=== PATIENT | male | born 1940 | race Caucasian/White ===

== ENCOUNTER 2017-04-13 17:43 | Emergency (ER) | payer MEDICARE ==
--- NOTE | 2017-04-13 19:55 | RAD ---
Indication: Chest pain. 2 views of the chest including dual energy PA views demonstrates no mediastinal shift. Lung bowling appear hyperinflated. No pleural fluid, pneumonia or pneumothorax. Old healed rib fractures of left fourth fifth sixth and seventh ribs is noted. IMPRESSION: No active cardiopulmonary disease is noted.
[2017-04-13 19:56] LABS: ABS Basophils 0 10^3/ul (0-0.2); ABS Eosinophils 0.3 10^3/ul (0-0.6); ABS Lymphocytes 1.7 10^3/ul (1.0-4.8); ABS Monocytes 0.8 10^3/ul (0-0.8); ABS Neutrophils 4.4 10^3/ul (1.5-7.7); ABS Nucleated RBC 0 10^3/ul; Eosinophil % 4.5 % (0-6); Hematocrit 42 % (42-52); Hemoglobin 14.1 g/dl (14.0-18.0); Lymphocyte % 23.7 % (25-47); Mean Corpuscular HGB Conc 34 g/dl (31-36); Mean Corpuscular Hemoglobin 30 pg (27-31); Mean Corpuscular Volume 89 fL (80-94); Mean Platelet Volume 8 um3 (7.4-10.4); Nucleated Red Blood Cells % 0; Platelet Count 244 10^3/ul (150-450); Red Cell Distribution Width 13 % (10.5-15); White Blood Count 7.3 10^3/ul (3.5-10.8)
[2017-04-13 20:14] LABS: EGFR Non-African American 57.4 (>60)
[2017-04-13 20:33] VITALS: BP 143/86
[2017-04-13] MEDS ORDERED: Iohexol 350* (CONTRAST) 500 ML MDV IV ONE (20:46)
--- NOTE | 2017-04-13 21:19 | RAD ---
Indication: Dyspnea, chest pain. Contrast: Administered 75.1 ml of VISAPAQUE 320 mg/ml CTA of the chest was performed after IV contrast administration. Coronal and sagittal reconstructed images were obtained. The pulmonary arterial tree is well opacified. There are no filling defects present to suggest pulmonary embolus. The aorta demonstrates no evidence of aortic dissection although fusiform ectasia of the descending aorta is noted measuring up to 4.7 cm. There is no mediastinal or hilar adenopathy noted. No mediastinal or hilar adenopathy is noted. The trachea and major bronchi are patent. Atelectasis is noted in the right lower lobe. Small 2 mm nodule is noted in the periphery of the right lower lobe reference image 43. Atelectasis is noted in the left lung base. The visualized abdominal organs are unremarkable. IMPRESSION: No evidence of pulmonary embolus is noted. Fusiform ectasia of the ascending aorta.
--- NOTE | 2017-04-13 22:30 | ED ---
Charli Vega Stephanie, scribed for Woodrow Stout MD on 04/13/17 at 1907 . HPI Chest Pain - HPI Summary HPI Summary: The pt is a 76 y/o M presenting to the ED with c/o CP that began on 04/10/17. The pt denies cough, fever and chills. The pt reports he was at rest at onset of pain. The pain radiates into his L shoulder. The pain is described as a sharp pain. The pt states he was checked 4 years ago for intermittent CP. - History of Current Complaint Chief Complaint: EDChestPainROMI Time Seen by Provider: 04/13/17 18:59 Hx Obtained From: Patient Onset/Duration: Started Days Ago - 3, Resolved Timing: Intermittent Current Severity: Mild Pain Intensity: 2 Pain Scale Used: 0-10 Numeric Chest Pain Location: Left Anterior Chest Pain Radiates: Yes Chest Pain Radiates To:: Shoulder - L Character: Sharp/Stabbing Aggravating Factor(s): Nothing Alleviating Factor(s): Nothing Associated Signs and Symptoms: Positive: Chest Pain. Negative: Fever, Chills, Cough - Allergy/Home Medications Allergies/Adverse Reactions: Allergies Allergy/AdvReac Type Severity Reaction Status Date / Time No Known Allergies Allergy Verified 10/16/16 12:58 Home Medications: Home Medications Ascorbate Calcium/Bioflavonoid [Sherry-C 500 mg Tablet] 1 each PO BID 04/13/17 [ History Confirmed 04/13/17] Aspirin EC Low Dose* [Ecotrin EC Low Dose 81 MG*] 81 mg PO DAILY 04/13/17 [ History Confirmed 04/13/17] Cranberry [Cranberry] 400 mg PO DAILY 04/13/17 [History Confirmed 04/13/17] Cyanocobalamin TAB* [Vitamin B12 TAB*] 500 mcg PO DAILY 04/13/17 [History Confirmed 04/13/17] Garlic [Odorless Garlic] 1,000 mg PO DAILY 04/13/17 [History Confirmed 04/13/17] Metoprolol Succinate XL TAB* [Toprol XL TAB*] 25 mg PO DAILY 04/13/17 [History Confirmed 04/13/17] [place]-3 Fatty Acids (Nf) [Fish Oil (NF)] 1,000 mg PO BID 04/13/17 [History Confirmed 04/13/17] Selenium (NF) 200 mcg PO DAILY 04/13/17 [History Confirmed 04/13/17] Ubidecarenone [Coq10] 100 mg PO DAILY 04/13/17 [History Confirmed 04/13/17] PMH/Surg Hx/FS Hx/Imm Hx Endocrine/Hematology History: Denies: Hx Diabetes Cardiovascular History: Reports: Hx Hypertension Denies: Hx Pacemaker/ICD History: Denies: Hx Renal Disease Comment Only: Other Problems/Disorders - retention balderas placed Sensory History: Reports: Hx Contacts or Glasses Denies: Hx Cataracts, Hx Eye Injury, Hx Eye Prosthesis, Hx Glaucoma, Hx Legally Blind, Hx Macular Degeneration, Hx Vision Problem, Hx Deafness, Hx Hearing Aid, Hx Hearing Problem, Other Sensory Impairments Opthamlomology History: Reports: Hx Contacts or Glasses Denies: Hx Cataracts, Hx Eye Injury, Hx Eye Prosthesis, Hx Glaucoma, Hx Legally Blind, Hx Macular Degeneration, Hx Vision Problem, Other Sensory Impairments Psychiatric History: Denies: Hx Panic Disorder - Cancer History Cancer Type, Location and Year: melanoma Hx Palliative Cancer Treatment: No - Surgical History Surgery Procedure, Year, and Place: HERNIA, RT ELBOW , RT KNEE, LT WRIST, MELANOMA REMOVED FROM UPPER BACK AREA, - Immunization History Date of Influenza Vaccine: 11/24 Infectious Disease History: No Infectious Disease History: Denies: Traveled Outside the [place] in Last 30 Days - Family History Known Family History: Positive: Cardiac Disease - Social History Occupation: Disabled Lives: With Family Alcohol Use: None Substance Use Type: Reports: None Smoking Status (MU): Never Smoked Tobacco Review of Systems Negative: Fever, Chills Positive: Chest Pain Negative: Cough All Other Systems Reviewed And Are Negative: Yes Physical Exam - Summary Physical Exam Summary: Appearance: Well-appearing, Well-nourished Skin: Warm, Dry, No rash Eyes: Normal, PERRL, EOMI, sclera anicteric ENT: Normal Neck: Supple, nontender Respiratory: rales at R base Cardiovascular: S1, S2, no murmur, no rub, no gallop Abdomen: Soft, nontender, no organomegaly Bowel sounds: Present Musculoskeletal: Normal, Strength/ROM Intact, no edema, pulses symmetrical Neurological: Normal, A&Ox3, cranial nerves II-XII WNL, follows commands, gait not tested, sensation intact to pin and light touch Psychiatric: affect normal, behavior appropriate, dressed appropriately, judgment intact Triage Information Reviewed: Yes Vital Signs On Initial Exam: Initial Vitals Temp Pulse Resp BP Pulse Ox 98.9 F 76 18 179/104 94 04/13/17 17:47 04/13/17 17:47 04/13/17 17:47 04/13/17 17:47 04/13/17 17:47 Vital Signs Reviewed: Yes Diagnostics - Vital Signs Vital Signs Temp Pulse Resp BP Pulse Ox 04/13/17 18:51 65 97 04/13/17 18:48 154/89 04/13/17 17:47 98.9 F 76 18 179/104 94 - Laboratory Result Diagrams: 04/13/17 19:45 04/13/17 19:45 Lab Statement: Any lab studies that have been ordered have been reviewed, and results considered in the medical decision making process. - Radiology CXR Xray Interpretation: No Acute Changes Radiology Interpretation Completed By: Radiologist - No active cardiopulmonary disease is noted. ED physician has reviewed this imaging report and agrees. - CT Chest/Thorax CTA CT Interpretation: No Acute Changes CT Interpretation Completed By: Radiologist - No evidence of pulmonary embolus is noted. Fusiform ectasia of the ascending aorta. ED physician has reviewed this imaging report and agrees. - EKG 17:50 Cardiac Rate: NL EKG Rhythm: Sinus Rhythm - 72 BPM EKG Interpretation: ectopic atrial rhythm, less than [address] elevation inferiorly 21:40 Cardiac Rate: NL EKG Rhythm: Sinus Rhythm - [address] Segment: Normal Ectopy: None EKG Interpretation: LAD, NSR Chest Pain Course/Dx - Course Course Of Treatment: The pt had a high D-Dimer. - Diagnoses Provider Diagnoses: atypical CP, dilated thoracic aorta Discharge - Discharge Plan Condition: Good Disposition: HOME Patient Education Materials: Chest Pain (ED) Referrals: Joaquín Galvan MD [Primary Care Provider] - The documentation as recorded by the Charli howe Stephanie accurately reflects the service I personally performed and the decisions made by me, Woodrow Stout MD.
== END 2017-04-13 22:23 | disposition home or self-care (01) ==
LOC: ED 17:43
DX: R07.89 Other chest pain (principal); I77.810 Thoracic aortic ectasia; R06.00 Dyspnea, unspecified; I10 Essential (primary) hypertension; Z79.82 Long term (current) use of aspirin
CPT/HCPCS: 36415; 71046; 71275; 80053; 83690; 84484; 85025; 85379; 93005; 99282; Q9967

== ENCOUNTER 2017-09-21 14:05 | Emergency (ER) | payer MEDICARE ==
[2017-09-21 14:42] LABS: ABS Basophils 0 10^3/ul (0-0.2); ABS Eosinophils 0.2 10^3/ul (0-0.6); ABS Lymphocytes 1.5 10^3/ul (1.0-4.8); ABS Monocytes 0.5 10^3/ul (0-0.8); ABS Neutrophils 3.6 10^3/ul (1.5-7.7); ABS Nucleated RBC 0 10^3/ul; Eosinophil % 4.1 % (0-6); Hematocrit 41 % (42-52); Hemoglobin 13.9 g/dl (14.0-18.0); Lymphocyte % 25.5 % (25-47); Mean Corpuscular HGB Conc 34 g/dl (31-36); Mean Corpuscular Hemoglobin 31 pg (27-31); Mean Corpuscular Volume 90 fL (80-94); Mean Platelet Volume 7.9 um3 (7.4-10.4); Nucleated Red Blood Cells % 0; Platelet Count 210 10^3/ul (150-450); Red Blood Count 4.53 10^6/ul (4.00-5.40); Red Cell Distribution Width 13 % (10.5-15); White Blood Count 5.9 10^3/ul (3.5-10.8)
--- NOTE | 2017-09-21 14:44 | ED ---
HPI Chest Pain - HPI Summary HPI Summary: This is scribe Ed Chelly documenting for attending Ti Lai MD. I, Dr. Lai, personally performed the services described in this documentation as scribed in my presence and it is both accurate and complete. 77 y/o male presents to the ED c/o sudden onset CP starting 3 days ago, gone now. Pt woke up with the pain. Pain described as a pressure pain. Denies N/V, SOB. Associated sx: L side ABD pain today (mild). Pt had a previous episode of CP several months ago, AA found (around 4.7 cm). Denies CP currently. - History of Current Complaint Chief Complaint: EDChestPainROMI Time Seen by Provider: 09/21/17 14:29 Hx Obtained From: Patient Onset/Duration: Started Days Ago, Resolved Current Severity: None Pain Intensity: 0 Pain Scale Used: 0-10 Numeric Character: Pressure/Squeezing Aggravating Factor(s): Nothing Alleviating Factor(s): Nothing Associated Signs and Symptoms: Positive: Chest Pain, Abdominal Pain - Allergy/Home Medications Allergies/Adverse Reactions: Allergies Allergy/AdvReac Type Severity Reaction Status Date / Time No Known Allergies Allergy Verified 10/16/16 12:58 Home Medications: Home Medications Cyanocobalamin TAB* [Vitamin B12 TAB*] 500 mcg PO DAILY 09/21/17 [History Confirmed 09/21/17] Finasteride TAB* [Proscar TAB*] 5 mg PO DAILY 09/21/17 [History Confirmed ] Fish Oil/Borage/Flax/Om3,6,9 1 [[place] 3-6-9 Complex Softgel] 400 mg PO QAM 09/21 [History Confirmed 09/21/17] Fish Oil/Borage/Flax/Om3,6,9 1 [[place] 3-6-9 Complex Softgel] 800 mg PO QPM 09/21 [History Confirmed 09/21/17] Lutein 40 mg PO DAILY 09/21/17 [History Confirmed 09/21/17] Metoprolol Tartrate TAB* [Lopressor TAB*] 12.5 mg PO BID 09/21/17 [History Confirmed 09/21/17] Nitroglycerin TAB 0.4 MG* 0.4 mg SL Q5M PRN 09/21/17 [History Confirmed 09/21/17 ] Omeprazole CAP* [Prilosec CAP* 20 MG] 20 mg PO DAILY PRN 09/21/17 [History Confirmed 09/21/17] Red Yeast Rice 600 mg PO DAILY 09/21/17 [History Confirmed 09/21/17] Ubidecarenone [Co Q-10] 100 mg PO DAILY 09/21/17 [History Confirmed 09/21/17] PMH/Surg Hx/FS Hx/Imm Hx Endocrine/Hematology History: Denies: Hx Diabetes Cardiovascular History: Reports: Hx Hypertension Denies: Hx Pacemaker/ICD History: Denies: Hx Renal Disease Comment Only: Other Problems/Disorders - retention balderas placed Sensory History: Reports: Hx Contacts or Glasses Denies: Hx Cataracts, Hx Eye Injury, Hx Eye Prosthesis, Hx Glaucoma, Hx Legally Blind, Hx Macular Degeneration, Hx Vision Problem, Hx Deafness, Hx Hearing Aid, Hx Hearing Problem, Other Sensory Impairments Opthamlomology History: Reports: Hx Contacts or Glasses Denies: Hx Cataracts, Hx Eye Injury, Hx Eye Prosthesis, Hx Glaucoma, Hx Legally Blind, Hx Macular Degeneration, Hx Vision Problem, Other Sensory Impairments Psychiatric History: Denies: Hx Panic Disorder - Cancer History Cancer Type, Location and Year: melanoma Hx Palliative Cancer Treatment: No - Surgical History Surgery Procedure, Year, and Place: HERNIA, RT ELBOW , RT KNEE, LT WRIST, MELANOMA REMOVED FROM UPPER BACK AREA, - Immunization History Date of Influenza Vaccine: 11/24 Infectious Disease History: No Infectious Disease History: Denies: Traveled Outside the [place] in Last 30 Days - Family History Known Family History: Positive: Cardiac Disease - Social History Alcohol Use: None Substance Use Type: Reports: None Smoking Status (MU): Never Smoked Tobacco Review of Systems Constitutional: Negative Eyes: Negative ENT: Negative Positive: Chest Pain Respiratory: Negative Positive: Abdominal Pain Genitourinary: Negative Musculoskeletal: Negative Skin: Negative Neurological: Negative Psychological: Normal All Other Systems Reviewed And Are Negative: Yes Physical Exam - Summary Physical Exam Summary: VITAL SIGNS: Reviewed. GENERAL: Patient is a well-developed and nourished male who is lying comfortable in the stretcher. Patient is not in any acute respiratory distress. HEAD AND FACE: No signs of trauma. No ecchymosis, hematomas or skull depressions. No sinus tenderness. EYES: PERRLA, EOMI x 2, No injected conjunctiva, no nystagmus. EARS: Hearing grossly intact. Ear canals and tympanic membranes are within normal limits. MOUTH: Oropharynx within normal limits. NECK: Supple, trachea is midline, no adenopathy, no JVD, no carotid bruit, no c- spine tenderness, neck with full ROM. CHEST: Symmetric, no tenderness at palpation LUNGS: Clear to auscultation bilaterally. No wheezing or crackles. CVS: Regular rate and rhythm, S1 and S2 present, no murmurs or gallops appreciated. ABDOMEN: Soft, non-tender. No signs of distention. No rebound no guarding, and no masses palpated. Bowel sounds are normal. EXTREMITIES: FROM in all major joints, no edema, no cyanosis or clubbing. NEURO: Alert and oriented x 3. No acute neurological deficits. Speech is normal and follows commands. SKIN: Dry and warm Triage Information Reviewed: Yes Vital Signs On Initial Exam: Initial Vitals Temp Pulse Resp BP Pulse Ox 97.2 F 59 15 127/88 96 09/21/17 14:13 09/21/17 14:13 09/21/17 14:13 09/21/17 14:13 09/21/17 14:13 Vital Signs Reviewed: Yes Diagnostics - Vital Signs Vital Signs Temp Pulse Resp BP Pulse Ox 09/21/17 14:30 56 19 94 09/21/17 14:13 97.2 F 57 16 127/88 94 - Laboratory Result Diagrams: 09/21/17 14:33 09/21/17 14:33 Lab Statement: Any lab studies that have been ordered have been reviewed, and results considered in the medical decision making process. - Radiology CXR Xray Interpretation: No Acute Changes - NO ACTIVE CARDIOPULMONARY DISEASE Radiology Interpretation Completed By: Radiologist - EKG 1 EKG Interpretation: 15:36 - SB @ [address] elevation, L axis deviation. Re-Evaluation - Re-Evaluation 1 Re-Evaluation Time: 18:47 Comment: discuss test results, plan to d/c Chest Pain Course/Dx - Course Assessment/Plan: Test results are without any significant abnormalities except glucose 120 and increased LFTs. Head CT negative for acute intracranial pathology. In the ED course the pt was given IV fluids, Benadryl, Regalin, and 1 dose of morphine. Upon reassessment the pts pain is 0/10. Pt is asymptomatic. Neural exam intact, no meningeal signs, no fever, therefore I have no suspicion of meningitis. Pt will be d/c home with f/u with PCP, return if symptoms worsen. - Diagnoses Provider Diagnoses: Chest pain Discharge - Sign-Out/Discharge Documenting (check all that apply): Patient Departure - Discharge Plan Condition: Stable Disposition: HOME Patient Education Materials: Chest Pain (ED) Referrals: Joaquín Galvan MD [Primary Care Provider] - 4 Days (PLEASE F/U IN 3-5 DAYS) Juan Pablo Vallejo MD [Medical Doctor] - 2 Days (PLEASE F/U IN 2-3 DAYS) Additional Instructions: RETURN TO THE ED FOR CHANGING/WORSENING SYMPTOMS - Billing Disposition and Condition Condition: STABLE Disposition: Home
[2017-09-21 15:09] LABS: EGFR Non-African American 63.1 (>60)
--- NOTE | 2017-09-21 15:55 | RAD ---
HISTORY: CP, chest pain COMPARISONS: April 13, 2017 VIEWS: 1: frontal portable view of the chest at 3:20 PM FINDINGS: LINES AND TUBES: None. CARDIOMEDIASTINAL SILHOUETTE: The cardiomediastinal silhouette is normal for portable technique. PLEURA: The costophrenic angles are sharp. No pleural abnormalities are noted. LUNG PARENCHYMA: The lungs are clear. ABDOMEN: The upper abdomen is clear. There is no subphrenic gas. BONES AND SOFT TISSUES: No bone or soft tissue abnormalities are noted. IMPRESSION: NO ACTIVE CARDIOPULMONARY DISEASE.
[2017-09-21 19:17] VITALS: BP 136/94
== END 2017-09-21 19:17 | disposition home or self-care (01) ==
LOC: ED 14:05
DX: R07.9 Chest pain, unspecified (principal); R10.9 Unspecified abdominal pain; I10 Essential (primary) hypertension
CPT/HCPCS: 36415; 71045; 80053; 82550; 82553; 83605; 83735; 83880; 84443; 84484; 85025; 85730; 93005; 99284

== ENCOUNTER → 2018-09-09 08:05 | Emergency (ER) | payer MEDICARE ==
[2018-09-09 09:15] VITALS: BP 168/78
--- NOTE | 2018-09-09 09:35 | ED ---
Laceration/Wound HPI - HPI Summary HPI Summary: Patient is a 78-year-old male presenting to the ED with middle and fourth finger lacerations from broken glass. Tetanus is up-to-date. He endorses blood thinners. He states he was unable to stop the area from bleeding, so came to the ED. The laceration is between the PIP and DIP of the left middle finger which is irregular, semilunar in approximately 2.5 centimeters in length. He also has an additional laceration to the ring finger between DIP and PIP measuring 0.5 cm and is superficial, not requiring sutures. He denies pain. Denies any other injuries. - History of Current Complaint Stated Complaint: LT MIDDLE FINGER INJ PER PT Time Seen by Provider: 09/09/18 08:11 Hx Obtained From: Patient Mechanism of Injury: Sharp/Blunt Trauma Onset/Duration: Sudden Onset Aggravating: Movement Alleviating: Compression Timing: Constant Onset Severity: Mild Current Severity: Mild Pain Intensity: 1 Pain Scale Used: 0-10 Numeric Associated Signs & Symptoms: Negative Related Hx: Anticoagulat Use - Allergy/Home Medications Allergies/Adverse Reactions: Allergies Allergy/AdvReac Type Severity Reaction Status Date / Time No Known Allergies Allergy Verified 09/09/18 08:09 PMH/Surg Hx/FS Hx/Imm Hx Previously Healthy: Yes Endocrine/Hematology History: Denies: Hx Diabetes Cardiovascular History: Reports: Hx Hypertension Denies: Hx Pacemaker/ICD History: Denies: Hx Renal Disease Comment Only: Other Problems/Disorders - retention balderas placed Sensory History: Reports: Hx Contacts or Glasses Denies: Hx Cataracts, Hx Eye Injury, Hx Eye Prosthesis, Hx Glaucoma, Hx Legally Blind, Hx Macular Degeneration, Hx Vision Problem, Hx Deafness, Hx Hearing Aid, Hx Hearing Problem, Other Sensory Impairments Opthamlomology History: Reports: Hx Contacts or Glasses Denies: Hx Cataracts, Hx Eye Injury, Hx Eye Prosthesis, Hx Glaucoma, Hx Legally Blind, Hx Macular Degeneration, Hx Vision Problem, Other Sensory Impairments Psychiatric History: Denies: Hx Panic Disorder - Cancer History Cancer Type, Location and Year: melanoma Hx Palliative Cancer Treatment: No - Surgical History Surgery Procedure, Year, and Place: HERNIA, RT ELBOW , RT KNEE, LT WRIST, MELANOMA REMOVED FROM UPPER BACK AREA, - Immunization History Date of Influenza Vaccine: 11/24 Hx Pertussis Vaccination: No Immunizations Up to Date: Yes Infectious Disease History: No Infectious Disease History: Denies: Traveled Outside the [place] in Last 30 Days - Family History Known Family History: Positive: Cardiac Disease - Social History Occupation: Unemployed Lives: With Family Alcohol Use: None Hx Substance Use: No Substance Use Type: Reports: None Hx Tobacco Use: No Smoking Status (MU): Never Smoked Tobacco Review of Systems Constitutional: Negative Negative: Fever, Chills, Fatigue, Skin Diaphoresis Negative: Palpitations, Chest Pain Negative: Shortness Of Breath, Cough Negative: Arthralgia, Myalgia Skin: Negative Neurological: Negative All Other Systems Reviewed And Are Negative: Yes Physical Exam Triage Information Reviewed: Yes Vital Signs On Initial Exam: Initial Vitals Temp Pulse Resp BP Pulse Ox 98.2 F 76 18 166/112 95 09/09/18 08:07 09/09/18 08:07 09/09/18 08:07 09/09/18 08:07 09/09/18 08:07 Vital Signs Reviewed: Yes Appearance: Positive: Well-Appearing, Well-Nourished Skin: Positive: Warm, Skin Color Reflects Adequate Perfusion, Other - laceration Neck: Positive: Supple, No Lymphadenopathy Respiratory/Lung Sounds: Positive: Clear to Auscultation, Breath Sounds Present Cardiovascular: Positive: RRR, Pulses are Symmetrical in both Upper and Lower Extremities Musculoskeletal: Positive: Strength/ROM Intact Neurological: Positive: Speech Normal Psychiatric: Positive: Affect/Mood Appropriate AVPU Assessment: Alert Procedures - Laceration/Wound Repair left middle finger Location: upper extremity Description: Irregular Anesthesia: Local, 1.0% Length, Depth and Shape: 2.5cm irregular Betadine Prep?: No Irrigated w/ Saline (ccs): 60 Laceration/Wound Explored: clean Suture Type: Prolene Number of Sutures: 6 Layer Closure?: Yes - occlusive gauze and tube wrapped Sterile Dressing Applied?: No Diagnostics - Vital Signs Vital Signs Temp Pulse Resp BP Pulse Ox 09/09/18 08:07 98.2 F 76 18 166/112 95 - Laboratory Lab Statement: Any lab studies that have been ordered have been reviewed, and results considered in the medical decision making process. Laceration Repair Course/Dx - Course Course Of Treatment: I patient's evaluated for left middle and left ring finger lacerations from glass. Tetanus is up-to-date. Laceration repair using lidocaine without epi with good effect. Denies pain. 6 sutures placed using simple interrupted, 4-0 Prolene. Occlusive gauze wrapped in tube gauze placed. Patient tolerated well. He will follow up in 7 days for suture removal. - Clinical Impression Provider Diagnoses: Laceration Discharge - Sign-Out/Discharge Documenting (check all that apply): Patient Departure Patient Received Moderate/Deep Sedation with Procedure: No - Discharge Plan Condition: Stable Disposition: HOME Patient Education Materials: Care For Your Stitches (ED), Laceration (ED) Referrals: Joaquín Galvan MD [Primary Care Provider] - Additional Instructions: Keep the bandage applied x 24 hours You may remove the brown part of the bandage later this afternoon Keep it wrapped with new gauze for another day Then you may leave open to air Suture removal in [address] ointment to the area if the area is dry or crusting. Immediately following the suture removal, you will want to cover it for another day or so - Billing Disposition and Condition Condition: STABLE Disposition: Home
== END | disposition home or self-care (01) ==
LOC: ED 08:05
DX: S61.213A Laceration without foreign body of left middle finger without damage to nail, initial encounter (principal); S61.215A Laceration without foreign body of left ring finger without damage to nail, initial encounter; I10 Essential (primary) hypertension; W25.XXXA Contact with sharp glass, initial encounter; Y92.9 Unspecified place or not applicable
CPT/HCPCS: 12001; 99282

== ENCOUNTER 2019-03-03 03:44 | Emergency (ER) | payer MEDICARE ==
--- NOTE | 2019-03-03 03:58 | ED ---
HPI Chest Pain - HPI Summary HPI Summary: Patient is a 78 y/o M presenting to the ED via EMS for a chief complaint of left anterior chest pain that initially began around 17:30 on 02/28/19. Patient notes the chest pain reoccurred around 22:30 on 03/01/19 and radiated to the left shoulder and left neck. During the chest pain, he also noticed diaphoresis and vision changes. Currently, patient complains of a headache and left shoulder pain. For the last week, patient reports being fatigued. He also states he typically has shortness of breath with exertion. Patient denies fever , decreased appetite, lightheadedness, nausea, changes in urination, or changes in bowel movements. He took NTG for the chest pain with relief. Patient went to see Dr. Vallejo, his tree trimmer, one week ago, and has a cardiac stress test scheduled for the next month. PMHx is significant for HTN, HLD, and angina. PSHx is significant for kidney stone removal, cardiac catheterization, and hernia repair. He denies tobacco use. - History of Current Complaint Chief Complaint: EDChestPainROMI Hx Obtained From: Patient Onset/Duration: Atraumatic, Resolved Timing: Intermittent Initial Severity: Mild Current Severity: None Pain Intensity: 0 Pain Scale Used: 0-10 Numeric Chest Pain Location: Left Anterior Chest Pain Radiates: Yes Chest Pain Radiates To:: Shoulder - Left, Neck - Left Aggravating Factor(s): Nothing Alleviating Factor(s): NTG 123 Associated Signs and Symptoms: Positive: Chest Pain - Left anterior, Vision Changes, Shortness of Breath - With exertion, Diaphoresis. Negative: Fever, Lightheadedness, Nausea - Allergy/Home Medications Allergies/Adverse Reactions: Allergies Allergy/AdvReac Type Severity Reaction Status Date / Time No Known Allergies Allergy Verified 09/09/18 08:09 PMH/Surg Hx/FS Hx/Imm Hx Previously Healthy: Yes Endocrine/Hematology History: Denies: Hx Diabetes Cardiovascular History: Reports: Hx Angina, Hx Hypercholesterolemia, Hx Hypertension Denies: Hx Pacemaker/ICD History: Denies: Hx Renal Disease Comment Only: Other Problems/Disorders - retention balderas placed Sensory History: Reports: Hx Contacts or Glasses Denies: Hx Cataracts, Hx Eye Injury, Hx Eye Prosthesis, Hx Glaucoma, Hx Legally Blind, Hx Macular Degeneration, Hx Vision Problem, Hx Deafness, Hx Hearing Aid, Hx Hearing Problem, Other Sensory Impairments Opthamlomology History: Reports: Hx Contacts or Glasses Denies: Hx Cataracts, Hx Eye Injury, Hx Eye Prosthesis, Hx Glaucoma, Hx Legally Blind, Hx Macular Degeneration, Hx Vision Problem, Other Sensory Impairments EENT History: Denies: Hx Deafness Psychiatric History: Denies: Hx Panic Disorder - Cancer History Cancer Type, Location and Year: melanoma Hx Palliative Cancer Treatment: No - Surgical History Surgical History: Yes Surgery Procedure, Year, and Place: HERNIA, RT ELBOW , RT KNEE, LT WRIST, MELANOMA REMOVED FROM UPPER BACK AREA, CARDIAC CATH - Immunization History Date of Influenza Vaccine: 11/24 Infectious Disease History: No Infectious Disease History: Denies: Traveled Outside the [place] in Last 30 Days - Family History Known Family History: Positive: Cardiac Disease - Social History Occupation: Retired Lives: With Family Alcohol Use: None Hx Substance Use: No Substance Use Type: Reports: None Hx Tobacco Use: No Smoking Status (MU): Never Smoked Tobacco Review of Systems Positive: Fatigue. Negative: Fever, Other - Negative decreased appetite Positive: Chest Pain - Left anterior Positive: Shortness Of Breath - With exertion Negative: Nausea, Other - Negative changes in bowel movements Negative: other - Negative changes in urination Positive: Arthralgia - Left shoulder that radiates from the chest, Myalgia - Left neck that radiates from the chest Neurological: Other - Negative lightheadedness Positive: Headache All Other Systems Reviewed And Are Negative: Yes Physical Exam - Summary Physical Exam Summary: Appearance: Well-appearing, Well-nourished, lying in bed comfortably Skin: Warm, dry, no obvious rash Eyes: sclera anicteric, no conjunctival pallor ENT: mucous membranes moist, pharynx appears normal Neck: Supple, nontender Respiratory: Clear to auscultation, no signs of respiratory distress Cardiovascular: Normal S1, S2. No murmurs. Normal distal pulses in tibial and radial bilaterally. Abdomen: Soft, nontender, normal active bowel sounds present Musculoskeletal: Normal, Strength/ROM Intact Neurological: A&Ox3, awake and alert, mentation is normal, speech is fluent and appropriate Psychiatric: affect is normal, does not appear anxious or depressed Triage Information Reviewed: Yes Vital Signs On Initial Exam: Initial Vitals Temp Pulse Resp BP Pulse Ox 97.7 F 61 17 137/86 97 03/03/19 03:45 03/03/19 03:45 03/03/19 03:45 03/03/19 03:45 03/03/19 03:45 Vital Signs Reviewed: Yes Procedures - Sedation Patient Received Moderate/Deep Sedation with Procedure: No Diagnostics - Vital Signs Vital Signs Temp Pulse Resp BP Pulse Ox 03/03/19 03:45 97.7 F 61 17 137/86 97 - Laboratory Result Diagrams: 03/03/19 04:06 03/03/19 04:06 Lab Statement: Any lab studies that have been ordered have been reviewed, and results considered in the medical decision making process. - Radiology Chest X-ray Radiology Interpretation Completed By: ED Physician Summary of Radiographic Findings: Chest X-ray IMPRESSION: no acute process. Reviewed and interpreted by Dr. Vivas, pending official radiology report. - EKG 03:38 Cardiac Rate: Bradycardia - 55 BPM EKG Rhythm: Sinus Bradycardia ST Segment: Normal Ectopy: None Summary of EKG Findings: EKG at 03:38 shows sinus bradycardia at 55 BPM, P waves , QRS complex, and T waves are within normal limits, T waves and intervals are normal, no ischemic changes, no STEMI. This is a normal EKG. Reviewed and interpreted by Dr. Vivas. Chest Pain Course/Dx - Course Course Of Treatment: Patient is a 78 y/o M presenting to the ED via EMS for a chief complaint of left anterior chest pain that initially began around 17:30 on 02/28/19. Patient notes the chest pain reoccurred around 22:30 on 03/01/19 and radiated to the left shoulder and left neck. During the chest pain, he also noticed diaphoresis and vision changes. Currently, patient complains of a headache and left shoulder pain. For the last week, patient reports being fatigued. He also states he typically has shortness of breath with exertion. Patient denies fever, decreased appetite, lightheadedness, nausea, changes in urination, or changes in bowel movements. He took NTG for the chest pain with relief. Patient went to see Dr. Vallejo, his tree trimmer, one week ago, and has a cardiac stress test scheduled for the next month. PMHx is significant for HTN , HLD, and angina. PSHx is significant for kidney stone removal, cardiac catheterization, and hernia repair. He denies tobacco use. On exam, unremarkable findings. Laboratory abnormal findings: Hgb 13.3, Hct 39, creatinine 1.18, glucose 108. EKG at 03:38 shows sinus bradycardia at 55 BPM, P waves, QRS complex, and T waves are within normal limits, T waves and intervals are normal, no ischemic changes, no STEMI. This is a normal EKG. Chest X-ray IMPRESSION: no acute process. Patient is a sign-out at 07:[address] Ruel Vivas MD to Dr. Miko Lema DO at shift change, pending repeat troponin, further workup, and disposition. - Diagnoses Provider Diagnoses: Chest pain Discharge ED - Sign-Out/Discharge Documenting (check all that apply): Sign-Out Patient Signing out patient TO: Alirio Lema - Patient is a sign-out at 07:00 on 03/03/[address] Ruel Vivas MD to Dr. Miko Lema DO at shift change, pending repeat troponin, further workup, and disposition. - Discharge Plan Condition: Stable Disposition: HOME Patient Education Materials: Chest Pain (ED) Referrals: Joaquín Galvan MD [Primary Care Provider] - Damir Rodriguez MD [Medical Doctor] - Additional Instructions: Please follow up with as soon as possible. Return to the ED with any worse or concerning symptoms. - Billing Disposition and Condition Condition: STABLE Disposition: Home - Attestation Statements Document Initiated by Hallie: Yes Documenting Scribe: Maryuri Mccracken Provider For Whom Hallie is Documenting (Include Credential): Ruel Vivas MD Scribe Attestation: IMaryuri, scrsandied for Ruel Vivas MD on 03/04/19 at 0411. Scribe Documentation Reviewed: Yes Provider Attestation: The documentation as recorded by the Maryuri howe accurately reflects the service I personally performed and the decisions made by me, Ruel Vivas MD Status of Scribe Document: Viewed
[2019-03-03 04:20] LABS: ABS Eosinophils 0.1 10^3/ul (0-0.6); ABS Lymphocytes 1.1 10^3/ul (1.0-4.8); ABS Monocytes 0.7 10^3/ul (0-0.8); ABS Neutrophils 6.6 10^3/ul (1.5-7.7); Eosinophil % 1.5 %; Hematocrit 39 % (42-52); Hemoglobin 13.3 g/dL (14.0-18.0); Lymphocyte % 12.7 %; Mean Corpuscular HGB Conc 34 g/dL (31-36); Mean Corpuscular Hemoglobin 31 pg (27-31); Mean Corpuscular Volume 90 fL (80-94); Mean Platelet Volume 7.6 fL (7.4-10.4); Platelet Count 231 10^3/uL (150-450); Red Blood Count 4.38 10^6 /uL (4.18-5.48); Red Cell Distribution Width 13 % (10-15); White Blood Count 8.6 10^3/uL (3.5-10.8)
[2019-03-03 04:31] LABS: Albumin 3.9 g/dL (3.2-5.2); Albumin/Globulin Ratio 1.6 (1-3); BUN/Creatinine Ratio 15.3 (8-20); Calcium 9.2 mg/dL (8.6-10.3); EGFR African American 72.4 (>60); EGFR Non-African American 59.9 (>60); Globulin 2.5 g/dL (2-4); Potassium 3.9 mmol/L (3.5-5.0); Total Bilirubin 0.3 mg/dL (0.2-1.0); Total Protein 6.4 g/dL (6.4-8.9)
--- NOTE | 2019-03-03 07:23 | ED ---
Progress - Progress Note Progress Note: Pt is received as a sign out from at 0700 03/03/2019. Shift change pending repeat troponin. Further workup as needed. Disposition. - EKG/XRAY/CT EKG: NSR Comments: Rate 62. No ischemic changes. Course/Dx - Course Course Of Treatment: Pt is received as a sign out from at 0700 2019. Shift change pending repeat troponin. Further workup as needed. Disposition. An EKG shows normal sinus rhythm at 62 bp. No ischemic changes. Consult with at 0752. Pt is asymptomatic with 2 neg troponins and EKG w/o acute ischemic changes. Pt may be discharged home for outpatient stress test as scheduled. - Diagnoses Provider Diagnoses: Chest pain - Provider Notifications Discussed Care Of Patient With: Damir Rodriguez Time Discussed With Above Provider: 07:52 Instructed by Provider To: Other - Discussed patient's case with Dr. Rodriguez, patient to be discharged and will follow up as out patient. Discharge ED - Sign-Out/Discharge Documenting (check all that apply): Patient Departure - discharge - Discharge Plan Condition: Stable Disposition: HOME Patient Education Materials: Chest Pain (ED) Referrals: Joaquín Galvan MD [Primary Care Provider] - Damir Rodriguez MD [Medical Doctor] - Additional Instructions: Please follow up with as soon as possible. Return to the ED with any worse or concerning symptoms. - Billing Disposition and Condition Condition: STABLE Disposition: Home - Attestation Statements Document Initiated by Lucíaibe: Yes Documenting Scribe: Andrzej Burks Provider For Whom Hallie is Documenting (Include Credential): Miko Lema DO Scribe Attestation: IAndrzej, scribed for Miko Lema DO on 03/03/19 at 1347. Scribe Documentation Reviewed: Yes Provider Attestation: The documentation as recorded by the Andrzej howe accurately reflects the service I personally performed and the decisions made by , Miko Lema DO Status of Scribe Document: Viewed Consult Consult: Consult with at 0752. Pt is asymptomatic with 2 neg troponins and EKG w/o acute ischemic changes. Pt may be discharged home for outpatient stress test as scheduled.
[2019-03-03 09:03] VITALS: BP 130/88
== END 2019-03-03 08:55 | disposition home or self-care (01) ==
LOC: ED 03:44
DX: R07.9 Chest pain, unspecified (principal); I10 Essential (primary) hypertension; E78.5 Hyperlipidemia, unspecified; Z87.442 Personal history of urinary calculi; E78.00 Pure hypercholesterolemia, unspecified; Z85.820 Personal history of malignant melanoma of skin
CPT/HCPCS: 36415; 71045; 80053; 83605; 84484; 85025; 93005; 99284

== ENCOUNTER 2019-03-10 23:34 | Inpatient (IN) | payer MEDICARE ==
[2019-03-11 01:23] LABS: Influenza A Molecular Negative (Negative); Influenza B Molecular Negative (Negative)
[2019-03-11 02:39] LABS: Urine Appearance Clear; Urine Bilirubin Negative (Negative); Urine Blood Negative (Negative); Urine Color Yellow; Urine Glucose Negative (Negative); Urine Ketones Negative (Negative); Urine Nitrite Negative (Negative); Urine Protein Negative (Negative); Urine Specific Gravity 1.005 (1.010-1.030); Urine Urobilinogen Negative (Negative)
[2019-03-11 02:41] LABS: Urine Bacteria Absent (Absent); Urine Red Blood Cell Trace(0-2/hpf) (Absent); Urine White Blood Cell Trace(0-5/hpf) (Absent)
--- NOTE | 2019-03-11 02:53 | ED ---
HPI Febrile Illness - HPI Summary HPI Summary: The pt is a 78 yr [facility] beginning several hours [employer]. He states that he had shaking chills earlier today accompanied by headache and fever. He states that he couldnt walk last night and his son had to carry him to the toilet. He rates his current pain severity due to the headache a 6/10. No aggravating or alleviating factors noted. He also reports abd pain and weakness but denies any n/v/d. unproductive cough. no cp. mild sob. - History of Current Complaint Chief Complaint: EDFever Time Seen by Provider: 03/11/19 01:57 Hx Obtained From: Patient Onset/Duration: Started Hours Ago, Still Present Timing: Lasting Hours Initial Severity: Moderate Current Severity: Moderate Pain Intensity: 6 Pain Scale Used: 0-10 Numeric Aggravating Factors: Nothing Alleviating Factors: Nothing Associated Signs and Symptoms: Negative - n/v/d, cough, Headache, Weakness, Other: - pos - fever, abd pain, shaking - Allergy/Home Medications Allergies/Adverse Reactions: Allergies Allergy/AdvReac Type Severity Reaction Status Date / Time No Known Allergies Allergy Verified 09/09/18 08:09 PMH/Surg Hx/FS Hx/Imm Hx Endocrine/Hematology History: Denies: Hx Diabetes Cardiovascular History: Reports: Hx Angina, Hx Hypercholesterolemia, Hx Hypertension Denies: Hx Pacemaker/ICD History: Denies: Hx Renal Disease Comment Only: Other Problems/Disorders - retention balderas placed Sensory History: Reports: Hx Contacts or Glasses Denies: Hx Cataracts, Hx Eye Injury, Hx Eye Prosthesis, Hx Glaucoma, Hx Legally Blind, Hx Macular Degeneration, Hx Vision Problem, Hx Deafness, Hx Hearing Aid, Hx Hearing Problem, Other Sensory Impairments Opthamlomology History: Reports: Hx Contacts or Glasses Denies: Hx Cataracts, Hx Eye Injury, Hx Eye Prosthesis, Hx Glaucoma, Hx Legally Blind, Hx Macular Degeneration, Hx Vision Problem, Other Sensory Impairments Psychiatric History: Denies: Hx Panic Disorder - Cancer History Cancer Type, Location and Year: melanoma Hx Palliative Cancer Treatment: No - Surgical History Surgery Procedure, Year, and Place: HERNIA, RT ELBOW , RT KNEE, LT WRIST, MELANOMA REMOVED FROM UPPER BACK AREA, CARDIAC CATH - Immunization History Date of Influenza Vaccine: 11/24 Infectious Disease History: No Infectious Disease History: Denies: Traveled Outside the [place] in Last 30 Days - Family History Known Family History: Positive: Cardiac Disease - Social History Alcohol Use: None Hx Substance Use: No Substance Use Type: Reports: None Hx Tobacco Use: No Smoking Status (MU): Never Smoked Tobacco Review of Systems Positive: Fever Negative: Cough Positive: Abdominal Pain. Negative: Vomiting, Diarrhea, Nausea Neurological: Other - pos - shaking Positive: Headache, Weakness All Other Systems Reviewed And Are Negative: Yes Physical Exam - Summary Physical Exam Summary: General: Well-developed, Well-nourished male. No acute distress. HEENT: Normocephalic, Atraumatic. Eyes: Conjuctiva normal, PERRL. Oropharynx: Clear, mucous membranes moist, (-) exudates. Neck: Soft, FROM, (-) lymphadenopathy, (-) thyromegaly, (-) JVD. Cardiovascular: Normal sinus rhythm, (-) murmur. Lungs: Clear to auscultation bilaterally (-) wheezes, (-) rales, (-) rhonchi. Abdomen: Soft, non-tender, non-distended, (-) organomegaly, normal bowel sounds. Back: (-) CVA tenderness Extremities: No edema. Skin: Warm, dry, (-) rash. Neuro: Alert and oriented x3, moves all extremities equally. No ataxia. No gait disturbance. No sensory deficit. No amnesia. Psychiatric: Mood normal, affect normal. Triage Information Reviewed: Yes Vital Signs On Initial Exam: Initial Vitals Temp Pulse Resp BP Pulse Ox 99.7 F 115 20 118/78 92 03/10/19 23:35 03/10/19 23:35 03/10/19 23:35 03/10/19 23:35 03/10/19 23:35 Vital Signs Reviewed: Yes Procedures - Sedation Patient Received Moderate/Deep Sedation with Procedure: No Diagnostics - Vital Signs Vital Signs Temp Pulse Resp BP Pulse Ox 03/10/19 23:35 99.7 F 115 20 118/78 92 - Laboratory Lab Results: Lab Results 03/11/19 03/11/19 Range/Units 00:55 02:30 Urine Color Yellow Urine Appearance Clear Urine pH 5.0 (5-9) Ur Specific [place] 1.005 L (1.010-1.030) Urine Protein Negative (Negative) Urine Ketones Negative (Negative) Urine Blood Negative (Negative) Urine Nitrate Negative (Negative) Urine Bilirubin Negative (Negative) Urine Urobilinogen Negative (Negative) Ur Leukocyte Esterase 1+ A (Negative) Urine WBC (Auto) Trace(0-5/hpf) (Absent) Urine RBC (Auto) Trace(0-2/hpf) (Absent) Urine Bacteria Absent (Absent) Urine Glucose Negative (Negative) Urine Ascorbic Acid * A (Negative) Influenza A (Rapid) Negative (Negative) Influenza B (Rapid) Negative (Negative) Result Diagrams: 03/11/19 03:37 03/11/19 03:37 Lab Statement: Any lab studies that have been ordered have been reviewed, and results considered in the medical decision making process. - Radiology CXR Radiology Interpretation Completed By: ED Physician Summary of Radiographic Findings: Right middle lobe PNA pending official report. - EKG 0319 Cardiac Rate: NL - 98 bpm EKG Rhythm: Sinus Rhythm Summary of EKG Findings: EKG @ 0319 reveals NSR @ 98 bpm. No STEMI. Re-Evaluation - Re-Evaluation First Eval Re-Evaluation Time: 04:46 Comment: Will run ABG and give fluids. Second Eval Re-Evaluation Time: 05:46 Comment: ABG shows that pt is hypoxic. Course/Dx - Course Course Of Treatment: 78-year-old male presents from home by ambulance for weakness. He states he started with shaking chills yesterday. Became gradually more weak. Developed fever. States his son had actually carry him to the bathroom overnight because he was so weak. He denies any chest pain. No nausea vomiting or diarrhea. Mild cough and shortness of breath. No urinary complaints. Decreased by mouth intake. Physical exam demonstrates diffuse weakness. No tingling or numbness or weakness of his lower extremity. No facial droop or difficulty in speech. Workup demonstrates significantly elevated white count, fever, right middle lobe pneumonia on x-ray. Started on antibiotics and fluids. Referred to hospitalist for admission. - Diagnoses Provider Diagnoses: Right middle lobe pneumonia, Weakness - Provider Notifications Discussed Care Of Patient With: Nadiya Loving - Dr. Loving will admit the pt to [facility]. Discharge ED - Sign-Out/Discharge Documenting (check all that apply): Patient Departure - admit - Discharge Plan Condition: Stable Disposition: ADMITTED TO [facility] - Billing Disposition and Condition Condition: STABLE [facility] - Attestation Statements Document Initiated by Scribe: Yes Documenting Scribe: Naatlio Leggett Provider For Whom Hallie is Documenting (Include Credential): Michelle Muse MD Scribe Attestation: INatalio, scribed for Michelle Muse MD on 03/11/19 at 1930. Scribe Documentation Reviewed: Yes Provider Attestation: The documentation as recorded by the scribeNatalio accurately reflects the service I personally performed and the decisions made by me, Michelle Muse MD Status of Scribe Document: Viewed
[2019-03-11] MEDS ORDERED: NS 0.9% 1000 ML** 1,000 ML IV ONE ×2 (02:54→05:08)
[2019-03-11 03:45] LABS: ABS Basophils 0.1 10^3/ul (0-0.2); ABS Lymphocytes 0.8 10^3/ul (1.0-4.8); ABS Monocytes 1.1 10^3/ul (0-0.8); ABS Neutrophils 19.8 10^3/ul (1.5-7.7); Hematocrit 42 % (42-52); Hemoglobin 14.2 g/dL (14.0-18.0); Lymphocyte % 3.5 %; Mean Corpuscular HGB Conc 34 g/dL (31-36); Mean Corpuscular Hemoglobin 30 pg (27-31); Mean Corpuscular Volume 88 fL (80-94); Mean Platelet Volume 7.8 fL (7.4-10.4); Platelet Count 238 10^3/uL (150-450); Red Blood Count 4.75 10^6 /uL (4.18-5.48); Red Cell Distribution Width 13 % (10-15); White Blood Count 21.8 10^3/uL (3.5-10.8)
[2019-03-11 04:02] LABS: Albumin 4.1 g/dL (3.2-5.2); Albumin/Globulin Ratio 1.2 (1-3); BUN/Creatinine Ratio 15.7 (8-20); C Reactive Protein 176.84 mg/L (<8.01); Calcium 9.3 mg/dL (8.6-10.3); EGFR African American 62.5 (>60); EGFR Non-African American 51.7 (>60); Globulin 3.3 g/dL (2-4); Potassium 4.4 mmol/L (3.5-5.0); Total Bilirubin 0.9 mg/dL (0.2-1.0); Total Protein 7.4 g/dL (6.4-8.9)
[2019-03-11] MEDS ORDERED: Piperacillin/Tazobac ADVAN(*) 3.375 GM in NS 0.9% 100 ML* 100 ML IVPB ONE (04:03)
[2019-03-11] MEDS ORDERED: Acetaminophen TAB* 325 MG PO ONE (04:58)
[2019-03-11] MEDS ORDERED: Azithromycin 500 mg/250 ml NS 500 MG/250 ML BAG IVPB ONE (05:08)
--- NOTE | 2019-03-11 07:19 | ADMNOTE ---
Subjective Interval History: This is my H/P 78 yr old male presented with fevers, cough, weakness, BEGUM and malaise X 1 week. His symptoms keep worsening to the point he felt too weak to even get out of bed, which is why he came in. He presented hypotensive, tachycardic with a fever. He was hypoxemic and got placed on 2L NC. Initial labs showed leukocytosis, AJITH. CXR is concerning for right middle lobe PNA. Pt received fluids and abx in the ED. No sick contacts, no recent travel. Flu neg. Family History: Unchanged from Admission Social History: Unchanged from Admission Past Medical History: Unchanged from Admission Review of Systems - Measurements Intake and Output: Intake and Output Last 24 Hours 03/09/19 03/10/19 03/11/19 03/12/19 06:59 06:59 06:59 06:59 Weight 172 lb - Review of Systems Constitutional Symptoms: Positive: Weakness, Fatigue, Fever Negative: Weight Gain, Weight Loss, Night Sweats, Unexplained Falls, Other Dermatology: Negative: Normal, Rash, Skin Lesions, Cancer, Skin Lumps, Other HEENT: Negative: Normal, Change in Hearing, Vertigo, Dental Problems, Tinnitus, Sinus Problem, Other Eyes: Negative: Normal, Change in Vision, Double Vision, Eye Pain, Glaucoma, Cataract, Contacts or Glasses, Other Thyroid: Negative: Normal, Goiter, Thyroid Nodule, Cold Intolerance, Heat Intolerance , Sweatiness, Tremor, Frequent Defecation, Constipation, Palpitations, Primary Hypothyroidism, Primary Hyperthyroidism, Weight Loss, Weight Gain, Change in Skin/Hair, Change in Menstruation, Radiation Exposure, Other Pulmonary: Positive: Cough, Shortness of Breath Negative: Normal, Sputum, Hemoptysis, Wheezing, Respiratory Distress, COPD, Asthma, Exercise Intolerance, Home Oxygen, Other Cardiology: Negative: Normal, Chest Pain, Shortness of Breath, Palpitations, Swelling of Ankles, Peripheral Vascular Dis, Edema, Faintness, Syncope, Claudication, Proximal NocturnalDyspnea, Orthopnoea, Other Gastroenterology: Negative: Normal, Abdominal Pain, Nausea, Vomiting, Anorexia, Indigestion, Difficulty Swallowing, Heartburn, Constipation, Diarrhea, Blood in Stools, Change in Bowel Habits, Haematemesis, Melena, Other Genital - Urinary: Negative: Normal, Dysuria, Hematuria, Polyuria, Nocturia, Other Musculoskeletal: Negative: Joint Pain, Joint Stiffness, Arthritis, Osteoporosis, Low Back Pain , Sciatica, Joint Deformities, Kyphoscoliosis, Other Endocrinology: Negative: Normal, Thyroid Problems, Adrenal Problems, Gonadal Problems, Family Hx Endocrine Disorders, Obesity, Diabetes Mellitus, Hyperglycemia, Hx Hypoglycemia, Diabetic Foot Ulcers, Calluses, Hirsutism, Menstrual Abnormalities , Polydipsia, Polyuria, Gonadal Problems, Gynecomastia, Pituitary disease, Other Hematologic/Lymphatic: Negative: Anemia, Easy Bruising, Hx Leukemia, Hx Lymphoma, Use of Anticoagulant, Use of Antiplatelet Drugs, Other Neurology: Positive: Headache Negative: Normal, Migraines, Change in Vision, Diplopia, Dizziness, Change in Balancing, Change in Coordination, Change in Memory, Change in Speech, Change in Sphincter Function, Change in Walking, Numbness\Paresthesiae, Unexplained Weakness, Hx of Stroke\TIA, Hx of Seizures, Other Psychiatry: Negative: Normal, Depression, Anxiety, Depressed Mood, Anhedonia, Sexual Dysfunction, Weight Change, Guilt Feelings, Tearfulness, Unusual Fatigue, Unusual Anxiety, Suicidal Ideation, Hypomania, Eating Disorders, Other Objective Active Medications: Acetaminophen (Tylenol Tab*) 650 mg PO Q6H PRN PRN Reason: PAIN - MILD Aspirin (Aspirin Ec Tab*) 81 mg PO DAILY [facility] Sodium Chloride (Ns 0.9% 1000 Ml) 1,000 mls @ 100 mls/hr IV PER RATE [facility] Metoprolol Tartrate (Lopressor Tab*) 12.5 mg PO BID [facility] Vital Signs - 8 hr 03/10/19 03/11/19 03/11/19 23:35 00:56 01:23 Temperature 99.7 F Pulse Rate 115 86 85 Respiratory 20 Rate Blood Pressure 118/78 119/71 (mmHg) O2 Sat by Pulse 92 94 94 Oximetry 03/11/19 03/11/19 03/11/19 01:26 01:55 02:00 Temperature Pulse Rate 86 88 88 Respiratory Rate Blood Pressure 112/72 122/72 (mmHg) O2 Sat by Pulse 94 95 96 Oximetry 03/11/19 03/11/19 03/11/19 02:26 02:56 03:00 Temperature Pulse Rate 92 95 Respiratory Rate Blood Pressure 126/84 128/76 (mmHg) O2 Sat by Pulse 96 96 Oximetry 03/11/19 03/11/19 03/11/19 04:06 04:08 04:37 Temperature 100.9 F Pulse Rate 110 110 105 Respiratory 20 Rate Blood Pressure 110/84 125/81 (mmHg) O2 Sat by Pulse 95 83 94 Oximetry 03/11/19 03/11/19 03/11/19 05:01 05:08 05:20 Temperature Pulse Rate 108 110 108 Respiratory 21 19 Rate Blood Pressure 116/78 109/72 117/70 (mmHg) O2 Sat by Pulse 92 93 94 Oximetry 03/11/19 03/11/19 03/11/19 05:23 05:28 05:33 Temperature Pulse Rate 108 106 104 Respiratory 22 26 26 Rate Blood Pressure 126/71 111/76 100/70 (mmHg) O2 Sat by Pulse 92 93 93 Oximetry 03/11/19 03/11/19 03/11/19 05:38 05:43 05:48 Temperature Pulse Rate 104 105 104 Respiratory 25 26 28 Rate Blood Pressure 93/64 92/64 99/68 (mmHg) O2 Sat by Pulse 93 93 94 Oximetry Oxygen Devices in Use Now: None, Nasal Cannula Appearance: ill appearing Eyes: No Scleral Icterus, PERRLA Ears/Nose/Mouth/Throat: Mucous Membranes Moist Neck: NL Appearance and Movements; NL JVP, Trachea Midline Respiratory: Symmetrical Chest Expansion and Respiratory Effort Cardiovascular: - - tachycardic Abdominal: NL Sounds; No Tenderness; No Distention Lymphatic: No Cervical Adenopathy Extremities: No Edema Skin: No Rash or Ulcers Neurological: Alert and Oriented x 3 Result Diagrams: 03/11/19 03:37 03/11/19 03:37 Additional Lab and Data: Lab Results 03/11/19 03/11/19 Range/Units 00:55 02:30 Urine Color Yellow Urine Appearance Clear Urine pH 5.0 (5-9) Ur Specific [place] 1.005 L (1.010-1.030) Urine Protein Negative (Negative) Urine Ketones Negative (Negative) Urine Blood Negative (Negative) Urine Nitrate Negative (Negative) Urine Bilirubin Negative (Negative) Urine Urobilinogen Negative (Negative) Ur Leukocyte Esterase 1+ A (Negative) Urine WBC (Auto) Trace(0-5/hpf) (Absent) Urine RBC (Auto) Trace(0-2/hpf) (Absent) Urine Bacteria Absent (Absent) Urine Glucose Negative (Negative) Urine Ascorbic Acid * A (Negative) Influenza A (Rapid) Negative (Negative) Influenza B (Rapid) Negative (Negative) Assess/Plan/Problems-Billing Assessment: - Patient Problems (1) Sepsis due to pneumonia Current Visit: Yes Status: Acute Code(s): J18.9 - PNEUMONIA, UNSPECIFIED ORGANISM; A41.9 - SEPSIS, UNSPECIFIED ORGANISM SNOMED Code(s): 37397036 Comment: presented with constitutional symptoms, hypotension, tachycardia labs shows AJITH. CXR show right middle lobe pna he is ill appearing blood cultures drawn azithro and cef for CAP IVF (2) DVT prophylaxis Current Visit: Yes Status: Acute Code(s): Z29.9 - ENCOUNTER FOR PROPHYLACTIC MEASURES, UNSPECIFIED SNOMED Code(s): 654590825 Comment: heparin sc (3) Hypertension Current Visit: No Status: Chronic Code(s): I10 - ESSENTIAL (PRIMARY) HYPERTENSION SNOMED Code(s): 09795889 Comment: hold home meds (4) Full code status Current Visit: Yes Status: Acute Code(s): Z78.9 - OTHER SPECIFIED HEALTH STATUS SNOMED Code(s): 176640290
[2019-03-11] MEDS ORDERED: Metoprolol Tartrate TAB* 25 MG PO SCH (09:00)
[2019-03-11] MEDS: Acetaminophen TAB* 325 MG PO PRN (10:11)
[2019-03-11] MEDS: cefTRIAXone(*) 1 GM in NS 0.9% 50 ML* 50 ML IVPB SCH (11:09)
[2019-03-11] MEDS: NS 0.9% 1000 ML** 1,000 ML IV SCH (13:00)
[2019-03-11] MEDS: Aspirin EC TAB* 81 MG TAB.EC PO SCH (13:25)
[2019-03-12] MEDS: Acetaminophen TAB* 325 MG PO PRN ×3 (00:34→20:27)
[2019-03-12] MEDS: NS 0.9% 1000 ML** 1,000 ML IV SCH ×2 (01:48→15:02)
[2019-03-12] MEDS ORDERED: Azithromycin 500 mg/250 ml NS 500 MG/250 ML BAG IVPB SCH (06:00)
[2019-03-12 06:32] LABS: ABS Basophils 0.1 10^3/ul (0-0.2); ABS Lymphocytes 1.4 10^3/ul (1.0-4.8); ABS Monocytes 1.3 10^3/ul (0-0.8); ABS Neutrophils 14.7 10^3/ul (1.5-7.7); Hematocrit 35 % (42-52); Hemoglobin 11.8 g/dL (14.0-18.0); Lymphocyte % 8.2 %; Mean Corpuscular HGB Conc 34 g/dL (31-36); Mean Corpuscular Hemoglobin 30 pg (27-31); Mean Corpuscular Volume 89 fL (80-94); Mean Platelet Volume 7.7 fL (7.4-10.4); Platelet Count 181 10^3/uL (150-450); Red Blood Count 3.92 10^6 /uL (4.18-5.48); Red Cell Distribution Width 13 % (10-15); White Blood Count 17.5 10^3/uL (3.5-10.8)
[2019-03-12 06:47] LABS: BUN/Creatinine Ratio 15.4 (8-20); Calcium 8.2 mg/dL (8.6-10.3); EGFR African American 83.8 (>60); EGFR Non-African American 69.3 (>60); Potassium 3.9 mmol/L (3.5-5.0)
[2019-03-12] MEDS: Aspirin EC TAB* 81 MG TAB.EC PO SCH (08:27)
[2019-03-12] MEDS ORDERED: guaiFENesin 100 mg/5 ml LIQ unit dose cup PO PRN (10:23)
--- NOTE | 2019-03-12 11:26 | PN ---
Subjective Date of Service: 03/12/19 Interval History: Patient felt generally improving since admission, seldom cough, no SOB, using 2L O2 tolerating well. Still feel weak, want to try walking before discharge. Also he complains of eye running, but not red. Objective Active Medications: Acetaminophen (Tylenol Tab*) 650 mg PO Q6H PRN PRN Reason: PAIN - MILD Last Admin: 03/12/19 08:27 Dose: 650 mg Aspirin (Aspirin Ec Tab*) 81 mg PO DAILY [facility] Last Admin: 03/12/19 08:27 Dose: 81 mg Azithromycin (Zithromax Tab*) 250 mg PO DAILY [facility] Stop: 03/17/19 08:59 Finasteride (Proscar Tab*) 5 mg PO DAILY [facility] Sodium Chloride (Ns 0.9% 1000 Ml) 1,000 mls @ 100 mls/hr IV PER RATE [facility] Last Admin: 03/12/19 01:48 Dose: 100 mls/hr Ceftriaxone Sodium 1 gm/ (Sodium Chloride) 50 mls @ 100 mls/hr IVPB Q24H [facility] Last Admin: 03/11/19 11:09 Dose: 100 mls/hr Vital Signs - 8 hr 03/12/19 03/12/19 03/12/19 04:15 07:18 08:00 Temperature 98.1 F 97.5 F Pulse Rate 80 71 Respiratory 18 17 17 Rate Blood Pressure 97/52 109/67 (mmHg) O2 Sat by Pulse 96 97 Oximetry 03/12/19 11:05 Temperature 97.9 F Pulse Rate 80 Respiratory 17 Rate Blood Pressure 108/63 (mmHg) O2 Sat by Pulse 96 Oximetry Oxygen Devices in Use Now: Nasal Cannula Exam: Appearance: weak appearing, NAD Eyes: No Scleral Icterus, PERRLA Neck: NL Appearance and Movements; NL JVP, Trachea Midline Respiratory: Symmetrical Chest Expansion and Respiratory Effort, clear on auscultation Cardiovascular: normal rate and rhythm, no murmur Abdominal: NL Sounds; No Tenderness; No Distention Lymphatic: No Cervical Adenopathy Extremities: No Edema Skin: No Rash or Ulcers Neurological: Alert and Oriented x 3 Result Diagrams: 03/12/19 06:22 03/12/19 06:22 Additional Lab and Data: Lab Results 03/11/19 03/11/19 Range/Units 00:55 02:30 Urine Color Yellow Urine Appearance Clear Urine pH 5.0 (5-9) Ur Specific [place] 1.005 L (1.010-1.030) Urine Protein Negative (Negative) Urine Ketones Negative (Negative) Urine Blood Negative (Negative) Urine Nitrate Negative (Negative) Urine Bilirubin Negative (Negative) Urine Urobilinogen Negative (Negative) Ur Leukocyte Esterase 1+ A (Negative) Urine WBC (Auto) Trace(0-5/hpf) (Absent) Urine RBC (Auto) Trace(0-2/hpf) (Absent) Urine Bacteria Absent (Absent) Urine Glucose Negative (Negative) Urine Ascorbic Acid * A (Negative) Influenza A (Rapid) Negative (Negative) Influenza B (Rapid) Negative (Negative) Microbiology and Other Data: bld cs so far neg Diagnostic Imaging: CXR: bibasal airspace opacity, atelectasis vs infiltrate Assess/Plan/Problems-Billing Assessment: 78 y/o male with history of hypertension, kidney stone, melanoma post removal, presented with fever, cough, generalized weakness for 1 week, found to right lower lobe community acquired pneumonia. - Patient Problems (1) Sepsis due to pneumonia Current Visit: Yes Status: Acute Code(s): J18.9 - PNEUMONIA, UNSPECIFIED ORGANISM; A41.9 - SEPSIS, UNSPECIFIED ORGANISM SNOMED Code(s): 24885249 Comment: presented with constitutional symptoms, hypotension, tachycardia labs shows AJITH. CXR show right middle lobe pna blood cultures so far neg continue iv NS IV ceftriaxone (03/11- 03/17) and azithromycin (03/11-03/15) (2) Hypertension Current Visit: No Status: Chronic Code(s): I10 - ESSENTIAL (PRIMARY) HYPERTENSION SNOMED Code(s): 86873911 Comment: hold off metopolol for now as bP around 100s, restart metoprol succinate when needed. (3) DVT prophylaxis Current Visit: Yes Status: Acute Code(s): Z29.9 - ENCOUNTER FOR PROPHYLACTIC MEASURES, UNSPECIFIED SNOMED Code(s): 086944795 Comment: heparin sc Status and Disposition: Inpatient Medicine. Wean down O2 today, discharge if fever free for 1 day at least. PT assess. Attestation Documenting Resident: Cleopatra Barth Supervising Physician: Madiha Valencia Attending/Supervising Physician Comment: Presenting with CAP, improving on CTX/azithro. Weaning oxygen today, but will need to check SaO2 while walking. Last fever was last night. Likely DC tomorrow on PO antibiotics. Attestation: This service has been performed in part by a resident under the direction of a teaching physician.I, Madiha Valencia, performed the service, or was physically present during the critical, or osborn portions of the service, furnished by the resident. I participated in the management of the patient.
[2019-03-12] MEDS: cefTRIAXone(*) 1 GM in NS 0.9% 50 ML* 50 ML IVPB SCH (12:10)
[2019-03-12] MEDS ORDERED: Ibuprofen TAB* 400 MG PO ONE (22:54)
[2019-03-13] MEDS: NS 0.9% 1000 ML** 1,000 ML IV SCH ×2 (01:38→12:24)
[2019-03-13] MEDS: Aspirin EC TAB* 81 MG TAB.EC PO SCH (07:51)
[2019-03-13] MEDS ORDERED: Azithromycin TAB* 250 MG PO SCH (09:00)
[2019-03-13] MEDS ORDERED: SUMAtriptan TAB* 25 MG PO ONE (09:00)
[2019-03-13] MEDS ORDERED: SUMAtriptan TAB* 50 MG PO ONE (09:00)
[2019-03-13] MEDS ORDERED: Finasteride TAB* 5 MG PO SCH ×2 (09:00→21:00)
[2019-03-13] MEDS: cefTRIAXone(*) 1 GM in NS 0.9% 50 ML* 50 ML IVPB SCH (10:19)
[2019-03-13] MEDS ORDERED: Docusate CAP* 100 MG PO PRN (10:28)
[2019-03-13 12:21] VITALS: BP 152/85
--- NOTE | 2019-03-13 19:47 | DS ---
CC: Dr. Joaquín Galvan * DISCHARGE SUMMARY: DATE OF ADMISSION: 03/11/19 DATE OF DISCHARGE: 03/13/19 PRIMARY CARE PHYSICIAN: Joaquín Galvan MD PRIMARY DIAGNOSIS: Community-acquired pneumonia. SECONDARY DIAGNOSES: 1. Hypertension. 2. Nephrolithiasis. 3. Melanoma, status post removal. DISCHARGE MEDICATIONS: 1. Augmentin 875 twice a day for 5 more days. 2. Cipro 250 mg daily for 3 more days. 3. Sumatriptan 50 mg as needed at the very onset of headache. 4. Metoprolol tartrate 12.5 mg twice a day. 5. Finasteride 5 mg daily. 6. Vitamin B12 500 mcg daily. 7. Vitamin D 1000 units daily. 8. Aspirin 81 mg daily. HISTORY OF PRESENT ILLNESS: Mr. Kilgore is a 78-year-old man with hypertension, who was presenting with 1 week of fever, cough, weakness and headache. These symptoms progressed to the point where he felt too weak to get out of bed, so he brought himself to the emergency room. HOSPITAL COURSE: In the emergency room, the patient was noted to be hypoxic on room air. His temperature on admission was 100.9 and increased to 103.2 F by the next morning. Chest x-ray was concerning for right middle lobe pneumonia. He was given IV fluids and asked to be admitted to the hospitalist service. Flu swab was negative. He was initiated on ceftriaxone and azithromycin. He continued to be weaned off oxygen, however, by end of his first full day of admission, he had another fever to 100.5. The next day, he was transitioned to oral antibiotics. He continued to experience headache that was only minimally responsive to Tylenol and ibuprofen. On the day of discharge, he was given sumatriptan and experienced significant relief in his symptoms and was ready to return home. He was saturating 98% on room air on day of discharge. PHYSICAL EXAMINATION: Vital Signs: Afebrile, heart rate 60s, blood pressure 148/90, respiratory rate 18, oxygen saturation 98% on room air. General: He is a well-appearing man in no acute distress. He is alert and interactive, speaking in full sentences. HEENT: Moist mucous membranes. OP clear. Lungs: Clear to auscultation bilaterally. Heart: Regular rate and rhythm. No murmurs, gallops or rubs. Abdomen: Soft, nontender, nondistended. Extremities : Warm and well perfused without evidence of edema. Neuro: A and O x3 without focal deficits. PERTINENT DIAGNOSTIC STUDIES: CBC notable for leukocytosis, which decreased from 22 to 17.5. Hemoglobin after significant fluids decreased to 11.8 with normal MCV. BMP with AJITH that resolved. Creatinine normal by discharge. Hemoglobin A1c 5.8. CRP on admission 177. UA: Unremarkable. Influenza A and B swabs negative. Chest x-ray with bibasilar air space opacification, atelectasis versus infiltrate. DISCHARGE PLAN: The patient will be discharged to complete a course of oral antibiotics for community-acquired pneumonia. He no longer required oxygen by day of discharge and his strength had significantly returned. He should otherwise continue his home medications as before and follow up with his primary care physician within the next week. For headache, given its relation to timing of pneumonia and without other red flag symptom, the patient was not offered brain imaging, however, if he continues to experience headache after his pneumonia resolves, he should have a brain MRI. The patient reported improvement with sumatriptan, so he was given 10 tablets of this after discharge and educated on appropriate use. DIET: Healthy diet, low in processed foods. ACTIVITY: As tolerated. DISPOSITION: To home. CONDITION: Improved. TIME SPENT: Approximately 60 minutes was spent on discharge of this patient, more than half of which was spent on care coordination at bedside for interview and exam. [id number]/[facility] #: [id number] OLGA
== END 2019-03-13 15:15 | disposition home or self-care (01) | DRG 871 ==
LOC: ED 23:34 → MEDTELE 03-11 10:37
PROVIDERS: ADMIT Internal Medicine; ATTEND Internal Medicine
DX: A41.9 Sepsis, unspecified organism (principal); J18.9 Pneumonia, unspecified organism; N17.9 Acute kidney failure, unspecified; E78.00 Pure hypercholesterolemia, unspecified; I10 Essential (primary) hypertension; R09.02 Hypoxemia; N20.0 Calculus of kidney; R33.9 Retention of urine, unspecified; Z85.820 Personal history of malignant melanoma of skin; Z79.82 Long term (current) use of aspirin; Z79.899 Other long term (current) drug therapy
CPT/HCPCS: 36415; 71045; 80048; 80053; 81003; 81015; 82803; 83036; 83605; 85025; 86140; 87040; 87077; 87086; 87186; 87205; 87899; 93005; 96365; 96375; 99285; A9270-GY; J0456; J0696; J2543

== ENCOUNTER 2020-03-06 05:50 | Inpatient (IN) ==
[2020-03-06] MEDS ORDERED: Lactated Ringers 1000 ml BAG 1,000 ML IV SCH (06:00)
[2020-03-06] MEDS ORDERED: Buffered Lidocaine 1% SYRIN 1 ml INTRADERM ONE (06:00)
[2020-03-06] MEDS ORDERED: cefTRIAXone 2 GM ADDV.VIAL ONE (06:15)
[2020-03-06] MEDS ORDERED: Lidocaine 2% PF 5 ML VIAL ONE (06:57)
[2020-03-06] MEDS ORDERED: Midazolam 2 mg/2 ml VIAL 1 mg/ml 2 ml VIAL (2 mg) ONE (06:57)
[2020-03-06] MEDS ORDERED: Rocuronium 50 mg VIAL 10 mg/ml 5 ml VIAL (50 mg) ONE (06:57)
[2020-03-06] MEDS ORDERED: Propofol 10 MG/ML 20 ML BTL ONE (06:57)
[2020-03-06] MEDS ORDERED: fentaNYL 100 mcg/2 ml 50 MCG/ML VIAL ONE ×2 (06:57→09:17)
[2020-03-06] MEDS ORDERED: EPHEDrine (Pressors) 50 MG/ML VIAL ONE (07:57)
[2020-03-06] MEDS ORDERED: Phenylephrine 40 mcg/mL 10mL (400mcg) SYRINGE ONE (07:57)
[2020-03-06] MEDS ORDERED: Acetaminophen IV 1 GM/100ML 100 ML ONE (08:22)
[2020-03-06] MEDS ORDERED: Dexamethasone IV 4 MG/ML VIAL 1 ml VIAL ONE (08:27)
[2020-03-06] MEDS ORDERED: Ondansetron 4 mg VIAL 2 MG/ML 2 ml VIAL ONE (08:27)
[2020-03-06] MEDS ORDERED: Naloxone 0.4 mg VIAL 0.4 mg/ml 1 ml VIAL IV PRN (08:56)
[2020-03-06] MEDS ORDERED: HYDROmorphone 1 MG/1 ML SYRINGE IV PRN (08:56)
[2020-03-06] MEDS ORDERED: Ondansetron 4 mg VIAL 2 MG/ML 2 ml VIAL IV PRN (08:56)
[2020-03-06] MEDS: fentaNYL 100 mcg/2 ml 50 MCG/ML VIAL IV PRN ×4 (09:19→09:37)
[2020-03-06] MEDS: NS 0.9% 1,000 ML IV SCH ×2 (10:30→17:35)
[2020-03-06] MEDS ORDERED: oxyCODONE/Acetamin 5/325 mg TAB PO PRN (11:46)
[2020-03-06] MEDS ORDERED: Lidocaine 2% JELLY 6 ML TOPICAL PRN (11:47)
[2020-03-07] MEDS: NS 0.9% 1,000 ML IV SCH ×4 (00:20→23:39)
[2020-03-07] MEDS ORDERED: Iodixanol (CONTRAST) 320 MG/ML 100 ML SDV IV ONE (11:40)
[2020-03-07] MEDS: Magnesium Hydroxide LIQ 30 ML UDC PO SCH ×2 (13:38→23:35)
[2020-03-07] MEDS ORDERED: Magnesium Hydroxide LIQ 30 ML UDC PO ONE (17:00)
[2020-03-08] MEDS ORDERED: Furosemide 20 mg/2 ml IV VIAL IV ONE (03:50)
[2020-03-08] MEDS ORDERED: Al Hydrox/Mg Hydrox/Simet LIQ 30 ML UDC PO ONE (08:25)
[2020-03-08] MEDS: Magnesium Hydroxide LIQ 30 ML UDC PO SCH ×2 (09:37→20:20)
[2020-03-08 10:57] LABS: ABS Lymphocytes 1.5 10^3/ul (1.0-4.8); ABS Monocytes 0.9 10^3/ul (0-0.8); ABS Neutrophils 9.6 10^3/ul (1.5-7.7); Eosinophil % 0.3 %; Hematocrit 43 % (42-52); Hemoglobin 14.5 g/dL (14.0-18.0); Lymphocyte % 12.1 %; Mean Corpuscular HGB Conc 34 g/dL (31-36); Mean Corpuscular Hemoglobin 29 pg (27-31); Mean Corpuscular Volume 87 fL (80-94); Mean Platelet Volume 7.7 fL (7.4-10.4); Platelet Count 291 10^3/uL (150-450); Red Blood Count 4.97 10^6 /uL (4.18-5.48); Red Cell Distribution Width 14 % (10-15); White Blood Count 12.1 10^3/uL (3.5-10.8)
[2020-03-08 11:02] LABS: Anion Gap 9 mmol/L (2-11); BUN/Creatinine Ratio 12.8 (8-20); Blood Urea Nitrogen 17 mg/dL (6-24); CO2 Carbon Dioxide 27 mmol/L (22-32); Chloride 101 mmol/L (101-111); EGFR African American 62.9 (>60); Glucose 140 mg/dL (70-100); Magnesium 2.2 mg/dL (1.9-2.7); Potassium 3.9 mmol/L (3.5-5.0); Sodium 137 mmol/L (135-145)
[2020-03-08 11:13] LABS: Troponin I 0.19 ng/mL (<0.03)
[2020-03-08] MEDS ORDERED: Iodixanol (CONTRAST) 320 MG/ML 100 ML SDV IV ONE (11:56)
[2020-03-08 18:03] LABS: Troponin I 0.03 ng/mL (<0.03)
[2020-03-08] MEDS ORDERED: NS 0.9% 1,000 ML IV ONE (18:15)
[2020-03-09] MEDS: Aspirin EC 81 mg TAB.EC (enteric coated) PO SCH (08:24)
[2020-03-09] MEDS: Magnesium Hydroxide LIQ 30 ML UDC PO SCH ×2 (08:28→21:04)
[2020-03-09 09:00] LABS: ABS Basophils 0.1 10^3/ul (0-0.2); ABS Eosinophils 0.2 10^3/ul (0-0.6); ABS Monocytes 0.9 10^3/ul (0-0.8); ABS Neutrophils 7.1 10^3/ul (1.5-7.7); Eosinophil % 1.6 %; Hematocrit 41 % (42-52); Hemoglobin 13.6 g/dL (14.0-18.0); Lymphocyte % 19.6 %; Mean Corpuscular HGB Conc 34 g/dL (31-36); Mean Corpuscular Hemoglobin 29 pg (27-31); Mean Corpuscular Volume 88 fL (80-94); Mean Platelet Volume 7.4 fL (7.4-10.4); Platelet Count 254 10^3/uL (150-450); Red Blood Count 4.63 10^6 /uL (4.18-5.48); Red Cell Distribution Width 14 % (10-15); White Blood Count 10.3 10^3/uL (3.5-10.8)
[2020-03-09 09:16] LABS: BUN/Creatinine Ratio 13.6 (8-20); Calcium 9.6 mg/dL (8.6-10.3); EGFR African American 63.5 (>60); EGFR Non-African American 52.5 (>60); Magnesium 2.5 mg/dL (1.9-2.7); Potassium 4.2 mmol/L (3.5-5.0)
[2020-03-10 07:10] LABS: ABS Eosinophils 0.3 10^3/ul (0-0.6); ABS Lymphocytes 2.2 10^3/ul (1.0-4.8); ABS Monocytes 0.9 10^3/ul (0-0.8); ABS Neutrophils 7.1 10^3/ul (1.5-7.7); Eosinophil % 3.1 %; Hematocrit 39 % (42-52); Hemoglobin 13.1 g/dL (14.0-18.0); Lymphocyte % 20.8 %; Mean Corpuscular HGB Conc 34 g/dL (31-36); Mean Corpuscular Hemoglobin 29 pg (27-31); Mean Corpuscular Volume 87 fL (80-94); Mean Platelet Volume 7.7 fL (7.4-10.4); Platelet Count 250 10^3/uL (150-450); Red Blood Count 4.49 10^6 /uL (4.18-5.48); Red Cell Distribution Width 13 % (10-15); White Blood Count 10.5 10^3/uL (3.5-10.8)
[2020-03-10 07:24] LABS: HDL Cholesterol 45.2 mg/dL
[2020-03-10 07:29] LABS: BUN/Creatinine Ratio 15.4 (8-20); Calcium 9.5 mg/dL (8.6-10.3); EGFR African American 55.2 (>60); EGFR Non-African American 45.6 (>60); Magnesium 2.3 mg/dL (1.9-2.7); Potassium 4.3 mmol/L (3.5-5.0)
[2020-03-10] MEDS: Aspirin EC 81 mg TAB.EC (enteric coated) PO SCH (08:45)
[2020-03-10] MEDS: Magnesium Hydroxide LIQ 30 ML UDC PO SCH ×2 (08:47→23:27)
[2020-03-11 06:30] LABS: BUN/Creatinine Ratio 16.6 (8-20); Calcium 9.2 mg/dL (8.6-10.3); EGFR Non-African American 47.1 (>60); Potassium 4.2 mmol/L (3.5-5.0)
[2020-03-11] MEDS: Aspirin EC 81 mg TAB.EC (enteric coated) PO SCH (11:07)
[2020-03-11] MEDS: Magnesium Hydroxide LIQ 30 ML UDC PO SCH (11:09)
[2020-03-11] MEDS ORDERED: Aminophylline 25 MG/ML VIAL ONE (13:53)
[2020-03-11] MEDS ORDERED: Regadenoson 0.4 MG/5 ML SYRINGE ONE (13:53)
[2020-03-11 17:10] VITALS: BP 152/81
== END 2020-03-11 20:30 | disposition home or self-care (01) | DRG 988 ==
LOC: INTOOBSV 05:50 → AA 05:50 → SSU 10:24
PROVIDERS: ADMIT Urology; ATTEND Internal Medicine